=== PATIENT | male | born 1965 ===

== ENCOUNTER 2017-07-28 10:16 | Emergency (ER) | payer MEDICAID, OTHER ==
[2017-07-28 10:31] VITALS: BP 148/85; PULSE 90; RESP 20; TEMP 98.3; O2SAT 96
--- NOTE | 2017-07-28 15:35 | C.PDOC ---
History Of Present Illness 51 y/o male presents to the ER complaining of pain in the right side of his groin which has been present for about 1 week after he twisted his body and felt a "pop". Patient reports that there is bulge at his umbilicus for the past 2 days. Patient denies any direct trauma to area, fever, nausea, vomiting, blood in stool/urine, and penile discharge. Chief Complaint (Nursing): Groin Pain History Per: Patient History/Exam Limitations: no limitations Onset/Duration Of Symptoms: Days Current Symptoms Are (Timing): Still Present Severity: Moderate Past Medical History Reviewed: Historical Data, Nursing Documentation, Vital Signs Vital Signs: Last Vital Signs Temp 98.3 F 07/28/17 10:30 Pulse 90 07/28/17 10:30 Resp 20 07/28/17 10:30 BP 148/85 07/28/17 10:30 Pulse Ox 96 07/28/17 15:39 - Medical History PMH: No Chronic Diseases Surgical History: Appendectomy Family History: States: No Known Family Hx - Social History Hx Alcohol Use: No Hx Substance Use: Yes - Immunization History Hx Tetanus Toxoid Vaccination: No Hx Pneumococcal Vaccination: No Review Of Systems Except As Marked, All Systems Reviewed And Found Negative. Musculoskeletal: Positive for: Other (groin pain) Physical Exam - Physical Exam Appears: Non-toxic, No Acute Distress Skin: Normal Color, Warm Head: Atraumatic, Normacephalic Eye(s): bilateral: Normal Inspection Nose: Normal Oral Mucosa: Moist Neck: Supple Chest: Symmetrical Cardiovascular: Rhythm Regular Respiratory: Normal Breath Sounds, No Accessory Muscle Use, No Rales, No Rhonchi , No Wheezing Gastrointestinal/Abdominal: Normal Exam, Soft, No Tenderness, Hernia (reducible umbilical hernia approx 1 cm in diam.) Extremity: Normal ROM Neurological/Psych: Oriented x3, Normal Speech, Normal Motor, Normal Sensation ED Course And Treatment O2 Sat by Pulse Oximetry: 96 (RA) Pulse Ox Interpretation: Normal Medical Decision Making Medical Decision Making: Progress: Patient has been given prescription of Motrin and told to follow up with clinic in 3-4 days. Disposition - Disposition Referrals: Vascular Nurse Service [Outside] [facility] [Outside] Disposition: HOME/ ROUTINE Disposition Time: 11:30 Condition: GOOD Additional Instructions: Thank you for letting us take care of you today. The emergency medical care you received today was directed at your acute symptoms. If you were prescribed any medication, please fill it and take as directed. It may take several days for your symptoms to resolve. Return to the Emergency Department if your symptoms worsen, do not improve, or if you have any other problems. Please contact your doctor or call one of the physicians/clinics you have been referred to that are listed on the Patient Visit Information form that is included in your discharge packet. Bring any paperwork you were given at discharge with you along with any medications you are taking to your follow up visit. Our treatment cannot replace ongoing medical care by a primary care provider (PCP) outside of the emergency department. Thank you for allowing the [facility] team to be part of your care today. Follow up with the clinic in 3-4 days for re-evaluation and further management. Prescriptions: Cyclobenzaprine [Cyclobenzaprine HCl] 10 mg PO Q8 PRN #20 tab PRN Reason: Muscle Spasm Ibuprofen [Motrin] 600 mg PO Q6 PRN #20 tab PRN Reason: Pain, Moderate (4-7) Instructions: Umbilical Hernia (ED), Groin Pain (ED) Forms: [place] ([place]) - Clinical Impression Clinical Impression: Umbilical hernia - Scribe Statement The provider has reviewed the documentation as recorded by the Omid Hobson Provider Attestation: All medical record entries made by the Antoniibjavad were at my direction and personally dictated by me. I have reviewed the chart and agree that the record accurately reflects my personal performance of the history, physical exam, medical decision making, and the department course for this patient. I have also personally directed, reviewed, and agree with the discharge instructions and disposition.
== END 2017-07-28 12:22 | disposition home or self-care (01) ==
LOC: C.ER 10:16
DX: K42.9 Umbilical hernia without obstruction or gangrene (principal)